=== PATIENT | male | born 1995 | race Caucasian/White ===

== ENCOUNTER 2017-09-24 20:54 | Emergency (ER) | payer SELFPAY ==
[2017-09-24 21:42] VITALS: BP 124/84; PULSE 104; RESP 16; TEMP 98.7; O2SAT 100
--- NOTE | 2017-09-24 22:27 | PD ---
HPI Chief Complaint: Abdominal Pain Time Seen by Provider: 22:13 Travel History International Travel<30 days: No Contact w/Intl Traveler<30days: No History of Present Illness HPI Patient is a 22-year-old male presents the emergency room with complaints of abdominal pain. 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 Patient reports that he felt fine after a few minutes after this accident occurred, reports that he went home and then began to have severe lower abdominal pain. Patient with no nausea or vomiting, patient with no other complaints at this time. Denies fever/chills. PFSH Past Medical History Medical History: Denies Significant Hx Tetanus Vaccination: > 5 Years Influenza Vaccination: Yes Past Surgical History Surgical History: No Previous Surgery Social History Alcohol Use: No Tobacco Use: No Substance Use: No Allergies-Medications (Allergen,Severity, Reaction): Coded Allergies: shellfish derived (Verified Allergy, Severe, 09/24/17) Review of Systems General / Constitutional: No: Fever Eyes: No: Visual changes HENT: No: Headaches Cardiovascular: No: Chest Pain or Discomfort Respiratory: No: Shortness of Breath Gastrointestinal: Positive: Abdominal Pain, No: Nausea, Vomiting, Diarrhea, Constipation Genitourinary: No: Dysuria Musculoskeletal: No: Pain Skin: No Rash Neurologic: No: Weakness Psychiatric: No: Depression Endocrine: No: Polydipsia Hematologic/Lymphatic: No: Easy Bruising Physical Exam Narrative GENERAL: NAD SKIN: Focused skin assessment warm/dry. HEAD: Atraumatic. Normocephalic. EYES: Pupils equal and round. No scleral icterus. No injection or drainage. ENT: No nasal bleeding or discharge. Mucous membranes pink and moist. NECK: Trachea midline. No JVD. CARDIOVASCULAR: Regular rate and rhythm. No murmur appreciated. RESPIRATORY: No accessory muscle use. Clear to auscultation. Breath sounds equal bilaterally. GASTROINTESTINAL: Abdomen soft, non-tender, nondistended. Hepatic and splenic margins not palpable. MUSCULOSKELETAL: No obvious deformities. No clubbing. No cyanosis. No edema. NEUROLOGICAL: Awake and alert. No obvious cranial nerve deficits. Motor grossly within normal limits. Normal speech. PSYCHIATRIC: Appropriate mood and affect; insight and judgment normal. Data Data Last Documented VS Vital Signs Date Time Temp Pulse Resp B/P (MAP) Pulse Ox O2 Delivery O2 Flow Rate FiO2 09/24/17 21:42 98.7 104 16 124/84 (97) [address] Abd/Pel W/O Iv Contrast (09/24/17 22:19) MDM Medical Decision Making Medical Screen Exam Complete: Yes Emergency Medical Condition: Yes Medical Record Reviewed: Yes Interpretation(s) Vital Signs Date Time Temp Pulse Resp B/P (MAP) Pulse Ox O2 Delivery O2 Flow Rate FiO2 09/24/17 21:42 98.7 104 16 124/84 (97) 100 Differential Diagnosis Appendicitis, abdominal wall strain, colitis Narrative Course Last Impressions Abdomen/Pelvis CT 09/24/172218 Signed Impressions: CONCLUSION: 1. No acute findings on abdomen and pelvic CT. CT of abdomen and pelvis with no acute findings. Patient with most likely abdominal wall strain. CT findings were reviewed with patient, he will follow- up with his primary care doctor and will return to the emergency room as needed. Diagnosis Primary Impression: Strain of abdominal wall Qualified Codes: S39.011A - Strain of muscle, fascia and tendon of abdomen, initial encounter Patient Instructions: General Instructions Departure Forms: Tests/Procedures, Work Release Enter return to work date: Sep 26, 2017 Additional Instructions: Please follow-up with your primary care doctor, return to the emergency room as needed Disposition: 01 DISCHARGE HOME Condition: Stable Jacquelin Alexandre DO Sep 24, 2017 22:27
--- NOTE | 2017-09-24 23:07 | RADRPT ---
EXAM DATE: 09/24/2017 10:57 PM EDT AGE/SEX: 22 years / Male INDICATIONS: Pain under umbilical area after moving a patient. CLINICAL DATA: This is the patient's initial encounter. Patient reports that signs and symptoms have been present for 1 day and indicates a pain score of 7/10. MEDICAL/SURGICAL HISTORY: None. None. RADIATION DOSE: 4.52 CTDI (mGy) COMPARISON: No prior exams available for comparison. TECHNIQUE: Multiple contiguous axial images were obtained through the abdomen. Images were obtained using multiple row detector helical technique. Using dose reduction techniques, radiation dose was ke pt as low as reasonably achievable to obtain optimal diagnostic quality images. FINDINGS: The lung bases are clear. No acute findings in the liver, spleen, adrenals, kidneys or pancreas. No free fluid or free air. No bowel obstruction. No hernia. Mild constipation. CONCLUSION: 1. No acute findings on abdomen and pelvic CT. Electronically signed by: Eyal Sifuentes MD 09/24/2017 11:06 PM EDT
== END 2017-09-25 00:14 | disposition home or self-care (01) ==
LOC: NEPD 20:54
DX: S39.011A Strain of muscle, fascia and tendon of abdomen, initial encounter (principal); X50.0XXA Overexertion from strenuous movement or load, initial encounter; Y93.F2 Activity, caregiving, lifting; Y99.0 Civilian activity done for income or pay
CPT/HCPCS: 74176; 99283